=== PATIENT | male | born 1990 | race Caucasian/White ===

== ENCOUNTER → 2017-09-21 | Outpatient (CLI) | payer MEDICAID | LOC: M OUTALCOH 10:03 | DX: Z03.89 Encounter for observation for other suspected diseases and conditions ruled out (principal) ==

== ENCOUNTER 2017-09-28 15:04 | Outpatient (RCR) | payer OTHER | END 2017-10-08 | LOC: M OUTALCOH 10-05 13:00 | DX: F11.10 Opioid abuse, uncomplicated (principal); F19.10 Other psychoactive substance abuse, uncomplicated; F17.200 Nicotine dependence, unspecified, uncomplicated ==

== ENCOUNTER 2017-10-11 16:00 | Outpatient (RCR) | payer OTHER | END 2017-11-08 | LOC: M OUTALCOH 10-12 16:00 | DX: F11.10 Opioid abuse, uncomplicated (principal); F19.10 Other psychoactive substance abuse, uncomplicated; F17.200 Nicotine dependence, unspecified, uncomplicated ==

== ENCOUNTER 2017-10-19 16:58 | Emergency (ER) | payer OTHER ==
[2017-10-19] MEDS: METHOCARBAMOL 750 MG TAB PO (17:57)
[2017-10-19] MEDS: NAPROXEN 250 MG TAB PO (17:57)
== END 2017-10-19 18:07 | disposition home or self-care (01) ==
LOC: M ED 16:58
DX: S16.1XXA Strain of muscle, fascia and tendon at neck level, initial encounter (principal); S39.012A Strain of muscle, fascia and tendon of lower back, initial encounter; X58.XXXA Exposure to other specified factors, initial encounter; Y92.9 Unspecified place or not applicable; Y93.89 Activity, other specified; Y99.9 Unspecified external cause status; Z72.0 Tobacco use; Z79.899 Other long term (current) drug therapy
CPT/HCPCS: 99282

== ENCOUNTER 2017-10-25 09:30 | Emergency (ER) | payer OTHER ==
[2017-10-25] MEDS: ONDANSETRON 4 MG ORAL DISINTEGRATING TAB (Q0162 PER 1MG) PO (10:49)
[2017-10-25 11:02] LABS: AMORPHOUS SEDIMENT LARGE (NEGATIVE); APPEARANCE, URINE TURBID (CLEAR); BACTERIA, URINE AUTO NEGATIVE (NEGATIVE); BILIRUBIN, URINE AUTO 1+ (NEGATIVE); BLOOD, URINE BLOOD NEGATIVE (NEGATIVE); COLOR, URINE YELLOW (YELLOW); GLUCOSE, URINE (UA) AUTO NEGATIVE (NEGATIVE); KETONE, URINE AUTO NEGATIVE (NEGATIVE); LEUKOCYTE ESTERASE, URINE AUTO NEGATIVE (NEGATIVE); MUCUS, URINE SMALL (NEGATIVE); NITRITE, URINE AUTO NEGATIVE (NEGATIVE); PROTEIN, URINE AUTO NEGATIVE (NEGATIVE); RBC, URINE AUTO 0 /HPF (0-3); SPECIFIC GRAVITY URINE AUTO 1.019 (1.002-1.035); SQUAMOUS EPITHELIAL CELL UR AU 0 /HPF (0-6); UROBILINOGEN, URINE AUTO 0.2 mg/dL (0.0-2.0); WBC, URINE AUTO 0 /HPF (0-3)
== END 2017-10-25 11:50 | disposition home or self-care (01) ==
LOC: M ED 09:30
DX: A08.4 Viral intestinal infection, unspecified (principal); Z20.828 Contact with and (suspected) exposure to other viral communicable diseases; M54.5 Low back pain; F17.200 Nicotine dependence, unspecified, uncomplicated; Z79.899 Other long term (current) drug therapy; Z79.1 Long term (current) use of non-steroidal anti-inflammatories (NSAID)
CPT/HCPCS: Q0162

== ENCOUNTER 2017-11-03 11:45 | Emergency (ER) | payer OTHER | END 2017-11-03 12:00 | disposition left against medical advice (07) | LOC: M ED 11:45 | DX: S69.90XA Unspecified injury of unspecified wrist, hand and finger(s), initial encounter (principal); Z53.21 Procedure and treatment not carried out due to patient leaving prior to being seen by health care provider ==

== ENCOUNTER 2017-12-31 18:20 | Emergency (ER) | payer OTHER ==
[2017-12-31 19:12] LABS: KETONE, URINE AUTO RFX NEGATIVE (NEGATIVE); LEUKOCYTE ESTERASE UR AUTO RFX NEGATIVE (NEGATIVE); MUCUS, URINE RFX SMALL (NEGATIVE); NITRITE, URINE AUTO RFX NEGATIVE (NEGATIVE); RBC, URINE AUTO RFX 2 /HPF (0-3); SPECIFIC GRAVITY UR AUTO RFX 1.012 (1.002-1.035); SQUAM EPITHELIAL CELL UR AURFX 0 /HPF (0-6); WBC, URINE AUTO RFX 0 /HPF (0-3)
[2017-12-31 20:11] LABS: BASO # 0.1 10^3/uL (0.0-0.2); BASO % 1.1 % (0.0-1.0); EOS # 0.2 10^3/uL (0.0-0.50); EOS % 3.1 % (0.0-3.0); HEMOGLOBIN 14.8 g/dl (13.5-17.5); IMMATURE GRANULOCYTE % 0.3 % (0-3.0); LYMPH # 2.4 10^3/uL (1.5-6.5); LYMPH % 33.8 % (24.0-44.0); MEAN CORPUSCULAR HEMOGLOBIN 31.4 pg (27.0-33.0); MEAN CORPUSCULAR HGB CONC 33.6 g/dl (32.0-36.5); MEAN CORPUSCULAR VOLUME 93.4 fl (80.0-96.0); NEUTROPHILS # 3.4 10^3/uL (1.8-7.7); NEUTROPHILS % 47.7 % (36.0-66.0); PLATELET COUNT, AUTOMATED 193 10^3/uL (150-450); RED BLOOD COUNT 4.71 10^6/uL (4.30-6.10); RED CELL DISTRIBUTION WIDTH 11.9 % (11.5-14.5); WHITE BLOOD COUNT 7.1 10^3/uL (4.0-10.0)
[2017-12-31 20:39] LABS: ANION GAP 7 MEQ/L (8-16); BLOOD UREA NITROGEN 9 MG/DL (7-18); CALCIUM LEVEL 8.8 MG/DL (8.5-10.1); CARBON DIOXIDE LEVEL 28 MEQ/L (21-32); CHLORIDE LEVEL 105 MEQ/L (98-107); CREATININE FOR GFR 0.78 MG/DL (0.70-1.30); GLOMERULAR FILTRATION RATE > 60.0 (>60); GLUCOSE, FASTING 78 MG/DL (70-100); POTASSIUM SERUM 4.1 MEQ/L (3.5-5.1); SODIUM LEVEL 140 MEQ/L (136-145)
[2017-12-31 20:56] LABS: CHLAMYDIA DNA AMPLIFICATION NEGATIVE (NEGATIVE); GC DNA AMPLIFICATION NEGATIVE (NEGATIVE)
== END 2017-12-31 21:14 | disposition home or self-care (01) ==
LOC: M ED 21:14
DX: R35.0 Frequency of micturition (principal); J45.909 Unspecified asthma, uncomplicated; Z79.891 Long term (current) use of opiate analgesic; F17.210 Nicotine dependence, cigarettes, uncomplicated
CPT/HCPCS: 80048

== ENCOUNTER 2018-04-03 17:21 | Emergency (ER) | payer OTHER ==
[~2018-04-03] VITALS: Ht 175.3 cm; Wt 65.0 kg
[~2018-04-03 17:21] MED LIST: LOTR1CRE12 TOP; NAPR-49 PO; PROA1AER2; ROBA500T PO; SUBO8MIS; TRIA1OI TOP; ZOFR4TAB14 PO
[2018-04-03] MEDS ORDERED: HALO0.052 (17:27)
[2018-04-03] MEDS ORDERED: ANUSOL HC CREAM 30GM TOP STA (17:58)
[2018-04-03] MEDS ORDERED: HYDR25OIN TOP (18:03)
[2018-04-03 18:42] VITALS: BP 124/81
[2018-04-04] MEDS ORDERED: HYDROCORTISONE 2.5% 20GM OINTMENT TOP SCH (09:00)
== END 2018-04-03 18:53 | disposition home or self-care (01) ==
LOC: M ED 17:21
DX: R21 Rash and other nonspecific skin eruption (principal); J45.909 Unspecified asthma, uncomplicated

== ENCOUNTER → 2018-08-17 | Outpatient (REF) | payer OTHER ==
[~2018-08-17] MED LIST changes: +HALO0.052; +HYDR25OIN TOP; -NAPR-49 PO; +NAPR-837 PO
[2018-08-17 18:18] LABS: BASO # 0.1 10^3/uL (0.0-0.2); BASO % 0.9 % (0.0-1.0); EOS # 0.2 10^3/uL (0.0-0.50); EOS % 3.7 % (0.0-3.0); HEMATOCRIT 42.9 % (42.0-52.0); HEMOGLOBIN 14.1 g/dl (13.5-17.5); LYMPH % 34.6 % (24.0-44.0); MEAN CORPUSCULAR HEMOGLOBIN 30.7 pg (27.0-33.0); MEAN CORPUSCULAR HGB CONC 32.9 g/dl (32.0-36.5); MEAN CORPUSCULAR VOLUME 93.5 fl (80.0-96.0); MONO # 0.7 10^3/uL (0.0-0.8); MONO % 12.1 % (0.0-5.0); NEUTROPHILS # 2.9 10^3/uL (1.8-7.7); NEUTROPHILS % 48.5 % (36.0-66.0); PLATELET COUNT, AUTOMATED 212 10^3/uL (150-450); RED BLOOD COUNT 4.59 10^6/uL (4.30-6.10); WHITE BLOOD COUNT 5.9 10^3/uL (4.0-10.0)
[2018-08-17 18:58] LABS: ALBUMIN 4.1 GM/DL (3.2-5.2); ALT/SGPT 36 U/L (12-78); BILIRUBIN,TOTAL 0.5 MG/DL (0.2-1.0); BLOOD UREA NITROGEN 18 MG/DL (7-18); CALCIUM LEVEL 8.7 MG/DL (8.5-10.1); CARBON DIOXIDE LEVEL 30 MEQ/L (21-32); CHLORIDE LEVEL 105 MEQ/L (98-107); CREATININE FOR GFR 0.77 MG/DL (0.70-1.30); GLOMERULAR FILTRATION RATE > 60.0 (>60); GLUCOSE, FASTING 88 MG/DL (70-100); POTASSIUM SERUM 3.9 MEQ/L (3.5-5.1); SODIUM LEVEL 139 MEQ/L (136-145); TOTAL PROTEIN 7.2 GM/DL (6.4-8.2)
== END ==
LOC: M LAB REF 17:22
PROVIDERS: ATTEND Nurse Practitioner Adult Health
DX: Z13.9 Encounter for screening, unspecified (principal)

== ENCOUNTER 2018-10-14 15:11 | Emergency (ER) | payer OTHER ==
[~2018-10-14] VITALS: Ht 177.8 cm; Wt 63.6 kg
[2018-10-14] MEDS ORDERED: DOXYCYCLINE HYCLATE 100 MG TAB PO ONE (16:30)
[2018-10-14 16:57] LABS: BASO # 0.1 10^3/uL (0.0-0.2); BASO % 1.2 % (0.0-1.0); EOS # 0.2 10^3/uL (0.0-0.50); EOS % 2.5 % (0.0-3.0); HEMATOCRIT 46.3 % (42.0-52.0); HEMOGLOBIN 15.3 g/dl (13.5-17.5); LYMPH # 2.5 10^3/uL (1.5-6.5); LYMPH % 36.8 % (24.0-44.0); MEAN CORPUSCULAR HEMOGLOBIN 30.8 pg (27.0-33.0); MEAN CORPUSCULAR VOLUME 93.3 fl (80.0-96.0); MONO # 0.7 10^3/uL (0.0-0.8); MONO % 10.5 % (0.0-5.0); NEUTROPHILS # 3.3 10^3/uL (1.8-7.7); PLATELET COUNT, AUTOMATED 196 10^3/uL (150-450); RED BLOOD COUNT 4.96 10^6/uL (4.30-6.10); WHITE BLOOD COUNT 6.7 10^3/uL (4.0-10.0)
[2018-10-14 17:07] LABS: CHLAMYDIA DNA AMPLIFICATION NEGATIVE (NEGATIVE); GC DNA AMPLIFICATION NEGATIVE (NEGATIVE)
[2018-10-14] MEDS ORDERED: FLOM0.4C39 PO (18:05)
[2018-10-14 18:10] VITALS: BP 119/69
== END 2018-10-14 18:14 | disposition home or self-care (01) ==
LOC: M ED 16:02
DX: R30.0 Dysuria (principal); J45.909 Unspecified asthma, uncomplicated; B00.9 Herpesviral infection, unspecified; Z79.891 Long term (current) use of opiate analgesic; F17.210 Nicotine dependence, cigarettes, uncomplicated

== ENCOUNTER → 2019-04-07 | Outpatient (CLI) | payer OTHER ==
[~2019-04-07] MED LIST changes: +FLOM0.4C39 PO
--- NOTE | 2019-04-08 17:58 | REPVR ---
PROCEDURE INFORMATION: Exam: MR Cervical Spine Without Contrast Exam date and time: 04/07/2019 12:58 PM Age: 28 years old Clinical indication: Condition or disease; Scoliosis; Cervical region; Additional info: Oth idiopathic scoliosis cervical region TECHNIQUE: Imaging protocol: Multiplanar magnetic resonance images of the cervical spine without contrast. COMPARISON: CR SPINE CERVICAL COMPL 10/30/2018 9:08 AM FINDINGS: Vertebrae: Unremarkable. Spinal cord: Normal signal. No cord compression. C2-C3: Unremarkable. No disc protrusion, cord impingement or spinal stenosis. C3-C4: Mild bilateral uncovertebral joint hypertrophy. No disc protrusion, cord impingement or spinal stenosis. Mild bilateral neural foraminal narrowing. C4-C5: Unremarkable. No disc protrusion, cord impingement or spinal stenosis. C5-C6: Unremarkable. No disc protrusion, cord impingement or spinal stenosis. C6-C7: No disc protrusion, cord impingement or spinal stenosis. Left sided foraminal/extraforaminal fluid signal lesion measuring 4 mm, consistent with nerve root sheath cyst. C7-T1: No disc protrusion, cord impingement or spinal stenosis. Left sided foraminal/extraforaminal fluid signal lesion measuring 5 mm, consistent with nerve root sheath cyst. Vertebral arteries: Expected flow voids in the vertebral arteries. Soft tissues: Unremarkable. IMPRESSION: 1. Mild degenerative spondylosis at C3-C4. 2. 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 Electronically signed by: Bladimir Kurtz On 04/08/2019 17:57:40 PM
== END ==
LOC: M RAD 11:57
PROVIDERS: ATTEND Physician Assistant
DX: M47.812 Spondylosis without myelopathy or radiculopathy, cervical region (principal); M41.22 Other idiopathic scoliosis, cervical region; M48.02 Spinal stenosis, cervical region

== ENCOUNTER → 2019-06-20 | Outpatient (CLI) | payer OTHER ==
[2019-06-20 20:27] LABS: PLATELET COUNT, AUTOMATED 205 10^3/uL (150-450)
[2019-06-20 20:59] LABS: PARTIAL THROMBOPLASTIN TIME 32.7 SECONDS (25.0-38.4); PROTHROMBIN TIME 13.2 SECONDS (11.8-14.0)
[2019-06-20 21:00] LABS: INR 1.3
== END ==
LOC: M WUC 16:34
PROVIDERS: ATTEND Physician Assistant
DX: M47.892 Other spondylosis, cervical region (principal); Z01.812 Encounter for preprocedural laboratory examination

== ENCOUNTER → 2021-11-24 | Outpatient (REF) | payer OTHER ==
[2021-11-24 18:25] LABS: BASO # 0.1 10^3/uL (0.0-0.2); BASO % 1.4 % (0.0-1.0); EOS # 0.2 10^3/uL (0.0-0.5); HEMOGLOBIN 14.4 g/dl (13.5-17.5); LYMPH # 2.1 10^3/uL (1.5-5.0); LYMPH % 35.8 % (24.0-44.0); MEAN CORPUSCULAR VOLUME 96.8 fl (80.0-96.0); MONO # 0.5 10^3/uL (0.0-0.8); NEUTROPHILS # 2.9 10^3/uL (1.5-8.5); NEUTROPHILS % 50.6 % (36.0-66.0); PLATELET COUNT, AUTOMATED 251 10^3/uL (150-450); RED BLOOD COUNT 4.65 10^6/uL (4.30-6.10); WHITE BLOOD COUNT 5.8 10^3/uL (4.0-10.0)
[2021-11-24 18:28] LABS: HEMOGLOBIN A1c 5.3 %
[2021-11-24 18:59] LABS: ALBUMIN 3.9 GM/DL (3.2-5.2); ALT/SGPT 22 U/L (12-78); BILIRUBIN,TOTAL 0.5 MG/DL (0.2-1.0); BLOOD UREA NITROGEN 13 MG/DL (7-18); CALCIUM LEVEL 9.4 MG/DL (8.5-10.1); CARBON DIOXIDE LEVEL 33 MEQ/L (21-32); CHLORIDE LEVEL 104 MEQ/L (98-107); CREATININE FOR GFR 0.79 MG/DL (0.70-1.30); GLOMERULAR FILTRATION RATE > 60.0 (>60); GLUCOSE, FASTING 87 MG/DL (70-100); POTASSIUM SERUM 4.7 MEQ/L (3.5-5.1); SODIUM LEVEL 138 MEQ/L (136-145); TOTAL PROTEIN 7.9 GM/DL (6.4-8.2)
[2021-11-24 21:15] LABS: HIV 1&2 SCREEN CENTAUR NEGATIVE (NEGATIVE)
== END ==
LOC: M LAB REF 17:15
PROVIDERS: ATTEND Family Medicine Addiction Medicine
DX: R63.4 Abnormal weight loss (principal)

== ENCOUNTER → 2022-01-15 | Outpatient (CLI) | payer OTHER | LOC: M WUC 09:06 | PROVIDERS: ATTEND Family Medicine Addiction Medicine | DX: R06.09 Other forms of dyspnea (principal); Z86.19 Personal history of other infectious and parasitic diseases ==

== ENCOUNTER 2022-04-19 16:14 | Emergency (ER) | payer OTHER ==
[~2022-04-19] VITALS: Ht 177.8 cm; Wt 54.9 kg
[2022-04-19] MEDS ORDERED: GABA800T4 (16:26)
[2022-04-19 22:53] LABS: BASO # 0.1 10^3/uL (0.0-0.2); BASO % 1.4 % (0.0-1.0); EOS # 0.1 10^3/uL (0.0-0.5); EOS % 1.8 % (0.0-3.0); HEMATOCRIT 43.8 % (42.0-52.0); HEMOGLOBIN 14.8 g/dl (13.5-17.5); LYMPH # 2.4 10^3/uL (1.5-5.0); LYMPH % 32.9 % (24.0-44.0); MEAN CORPUSCULAR HEMOGLOBIN 31.4 pg (27.0-33.0); MEAN CORPUSCULAR HGB CONC 33.8 g/dl (32.0-36.5); MEAN CORPUSCULAR VOLUME 92.8 fl (80.0-96.0); MONO # 0.9 10^3/uL (0.0-0.8); MONO % 11.9 % (2.0-8.0); NEUTROPHILS # 3.7 10^3/uL (1.5-8.5); NEUTROPHILS % 51.7 % (36.0-66.0); PLATELET COUNT, AUTOMATED 181 10^3/uL (150-450); RED BLOOD COUNT 4.72 10^6/uL (4.30-6.10); WHITE BLOOD COUNT 7.2 10^3/uL (4.0-10.0)
[2022-04-19 23:17] LABS: ALBUMIN 4.7 G/DL (3.2-5.2); ALKALINE PHOSPHATASE 63 U/L (46-116); ALT/SGPT 74 U/L (7.0-40); AST/SGOT 31 U/L (<34); BILIRUBIN,TOTAL 1.3 MG/DL (0.3-1.2); BLOOD UREA NITROGEN 15 MG/DL (9-23); CALCIUM LEVEL 9.5 MG/DL (8.5-10.1); CARBON DIOXIDE LEVEL 28 MMOL/L (20-31); CHLORIDE LEVEL 102 MMOL/L (98-107); CREATININE FOR GFR 0.75 MG/DL (0.70-1.30); GLOMERULAR FILTRATION RATE > 60.0 (>60); GLUCOSE, FASTING 85 MG/DL (60-100); POTASSIUM SERUM 4.1 MMOL/L (3.5-5.1); SODIUM LEVEL 138 MMOL/L (136-145); TOTAL PROTEIN 7.7 G/DL (5.7-8.2)
[2022-04-20] MEDS ORDERED: HYDR-3363 PO (02:58)
[2022-04-20 02:59] VITALS: BP 123/84
== END 2022-04-20 03:23 | disposition home or self-care (01) ==
LOC: M ED 16:14
DX: F41.9 Anxiety disorder, unspecified (principal); F43.0 Acute stress reaction; I45.10 Unspecified right bundle-branch block; F12.10 Cannabis abuse, uncomplicated; J45.909 Unspecified asthma, uncomplicated; Z79.51 Long term (current) use of inhaled steroids; Z79.891 Long term (current) use of opiate analgesic; Z79.899 Other long term (current) drug therapy

== ENCOUNTER → 2022-05-13 | Outpatient (REF) | payer OTHER ==
[~2022-05-13] MED LIST changes: +GABA800T4; +HYDR-3363 PO
[2022-05-13 17:15] LABS: BASO # 0.1 10^3/uL (0.0-0.2); BASO % 2.2 % (0.0-1.0); EOS # 0.2 10^3/uL (0.0-0.5); HEMATOCRIT 44.5 % (42.0-52.0); HEMOGLOBIN 14.5 g/dl (13.5-17.5); LYMPH # 1.9 10^3/uL (1.5-5.0); LYMPH % 37.3 % (24.0-44.0); MEAN CORPUSCULAR HEMOGLOBIN 30.5 pg (27.0-33.0); MEAN CORPUSCULAR HGB CONC 32.6 g/dl (32.0-36.5); MEAN CORPUSCULAR VOLUME 93.7 fl (80.0-96.0); MONO # 0.5 10^3/uL (0.0-0.8); MONO % 9.9 % (2.0-8.0); NEUTROPHILS # 2.4 10^3/uL (1.5-8.5); NEUTROPHILS % 47.4 % (36.0-66.0); PLATELET COUNT, AUTOMATED 212 10^3/uL (150-450); RED BLOOD COUNT 4.75 10^6/uL (4.30-6.10)
[2022-05-13 17:41] LABS: ALBUMIN 4.4 G/DL (3.2-5.2); ALKALINE PHOSPHATASE 61 U/L (46-116); ALT/SGPT 38 U/L (7.0-40); AST/SGOT 28 U/L (<34); BILIRUBIN,TOTAL 0.7 MG/DL (0.3-1.2); BLOOD UREA NITROGEN 14 MG/DL (9-23); CALCIUM LEVEL 8.8 MG/DL (8.5-10.1); CARBON DIOXIDE LEVEL 31 MMOL/L (20-31); CHLORIDE LEVEL 103 MMOL/L (98-107); CREATININE FOR GFR 0.73 MG/DL (0.70-1.30); GLOMERULAR FILTRATION RATE > 60.0 (>60); GLUCOSE, FASTING 89 MG/DL (60-100); POTASSIUM SERUM 4.5 MMOL/L (3.5-5.1); SODIUM LEVEL 138 MMOL/L (136-145); TOTAL PROTEIN 7.5 G/DL (5.7-8.2)
== END ==
LOC: M LAB REF 16:44
PROVIDERS: ATTEND Family Medicine Addiction Medicine
DX: Z86.19 Personal history of other infectious and parasitic diseases (principal)

== ENCOUNTER → 2022-06-01 | Outpatient (CLI) | payer OTHER | LOC: M RAD 13:31 | PROVIDERS: ATTEND Internal Medicine Pulmonary Disease | DX: R06.02 Shortness of breath (principal) ==

== ENCOUNTER → 2023-09-01 | Outpatient (CLI) | payer MEDICAID | LOC: M OUTALCOH 07:59 | PROVIDERS: ATTEND Psychiatry & Neurology Psychiatry | DX: F11.20 Opioid dependence, uncomplicated (principal) ==

== ENCOUNTER 2023-09-07 15:54 | Outpatient (RCR) | payer MEDICAID | END 2023-09-09 | LOC: M OUTALCOH 15:54 | PROVIDERS: ATTEND Psychiatry & Neurology Psychiatry | DX: F11.20 Opioid dependence, uncomplicated (principal) ==

== ENCOUNTER → 2024-03-01 | Outpatient (REF) | payer MEDICAID ==
[~2024-03-01] MED LIST changes: +GABA-1635; -GABA800T4; -HALO0.052; +HALO0.056
[2024-03-01 19:24] LABS: HEMATOCRIT 45.6 % (42.0-52.0); MEAN CORPUSCULAR HEMOGLOBIN 31.4 pg (27.0-33.0); MEAN CORPUSCULAR HGB CONC 32.9 g/dl (32.0-36.5); MEAN CORPUSCULAR VOLUME 95.6 fl (80.0-96.0); PLATELET COUNT, AUTOMATED 151 10^3/uL (150-450); RED BLOOD COUNT 4.77 10^6/uL (4.30-6.10); WHITE BLOOD COUNT 4.8 10^3/uL (4.0-10.0)
[2024-03-01 19:58] LABS: ALBUMIN 3.8 G/DL (3.2-5.2); ALKALINE PHOSPHATASE 80 U/L (40-129); ALT/SGPT 37 U/L (7.0-40); AST/SGOT 50 U/L (<34); BILIRUBIN,TOTAL 0.4 MG/DL (0.3-1.2); BLOOD UREA NITROGEN 16 MG/DL (9-23); CALCIUM LEVEL 9.4 MG/DL (8.5-10.1); CARBON DIOXIDE LEVEL 29 MMOL/L (20-31); CHLORIDE LEVEL 106 MMOL/L (98-107); CREATININE FOR GFR 0.62 MG/DL (0.70-1.30); GLOMERULAR FILTRATION RATE > 60.0 (>60); GLUCOSE, FASTING 93 MG/DL (60-100); POTASSIUM SERUM 4.7 MMOL/L (3.5-5.1); SODIUM LEVEL 141 MMOL/L (136-145); TOTAL PROTEIN 6.9 G/DL (5.7-8.2); VITAMIN B12 LEVEL 390 PG/ML (211-911)
== END ==
LOC: M LAB REF 16:36
PROVIDERS: ATTEND Family Medicine Addiction Medicine
DX: M79.671 Pain in right foot (principal); M79.672 Pain in left foot

== ENCOUNTER 2024-08-12 20:51 | Emergency (ER) | payer MEDICAID, OTHER ==
[~2024-08-12] VITALS: Ht 177.8 cm; Wt 59.1 kg
[~2024-08-12 20:51] MED LIST changes: -FLOM0.4C39 PO; +TAMS-18 PO
[2024-08-12] MEDS ORDERED: CLON1TAB8 (21:00)
[2024-08-12] MEDS ORDERED: ALBU2.5V10 (21:00)
[2024-08-13] MEDS: KETOROLAC 30 MG/ML 1ML VIAL IV ONE (00:48)
[2024-08-13 00:58] LABS: BASO # 0.1 10^3/uL (0.0-0.2); BASO % 0.3 % (0.0-1.0); EOS % 0.1 % (0.0-3.0); HEMATOCRIT 45.2 % (42.0-52.0); HEMOGLOBIN 14.6 g/dl (13.5-17.5); LYMPH # 0.6 10^3/uL (1.5-5.0); LYMPH % 4.1 % (24.0-44.0); MEAN CORPUSCULAR HGB CONC 32.3 g/dl (32.0-36.5); MONO % 6.6 % (2.0-8.0); NEUTROPHILS # 12.9 10^3/uL (1.5-8.5); NEUTROPHILS % 88.6 % (36.0-66.0); PLATELET COUNT, AUTOMATED 237 10^3/uL (150-450); RED BLOOD COUNT 4.71 10^6/uL (4.30-6.10); WHITE BLOOD COUNT 14.5 10^3/uL (4.0-10.0)
[2024-08-13] MEDS: NS (Normal Saline) 0.9% 1,000 ML IV ONE (01:15)
[2024-08-13 01:23] LABS: BLOOD UREA NITROGEN 9 MG/DL (9-23); CALCIUM LEVEL 8.8 MG/DL (8.5-10.1); CARBON DIOXIDE LEVEL 29 MMOL/L (20-31); CHLORIDE LEVEL 104 MMOL/L (98-107); CK-MB VALUE MASS < 1.0 NG/ML (<3.6); CREATININE FOR GFR 0.63 MG/DL (0.70-1.30); GLOMERULAR FILTRATION RATE > 90.0 (>60); GLUCOSE, FASTING 124 MG/DL (60-100); POTASSIUM SERUM 4.5 MMOL/L (3.5-5.1); SODIUM LEVEL 141 MMOL/L (136-145)
[2024-08-13 01:27] LABS: CPK CREATINE PHOSPHOKINASE 82 U/L (46-171); MB/CK RELATIVE INDEX 1.21 (< OR =4)
[2024-08-13] MEDS ORDERED: ISOVUE-370 76% 100ML VIAL As Ordered ONE (01:30)
[2024-08-13 03:09] LABS: APPEARANCE, URINE CLEAR (CLEAR); BACTERIA, URINE AUTO NEGATIVE (NEGATIVE); BILIRUBIN, URINE AUTO NEGATIVE (NEGATIVE); BLOOD, URINE BLOOD NEGATIVE (NEGATIVE); COLOR, URINE YELLOW (YELLOW); GLUCOSE, URINE (UA) AUTO NEGATIVE (NEGATIVE); KETONE, URINE AUTO NEGATIVE (NEGATIVE); LEUKOCYTE ESTERASE, URINE AUTO NEGATIVE (NEGATIVE); MUCUS, URINE SMALL (NEGATIVE); NITRITE, URINE AUTO NEGATIVE (NEGATIVE); PROTEIN, URINE AUTO 1+ mg/dL (NEGATIVE); RBC, URINE AUTO 1 /HPF (0-3); SPECIFIC GRAVITY URINE AUTO 1.027 (1.002-1.035); SQUAMOUS EPITHELIAL CELL UR AU 0 /HPF (0-6); WBC, URINE AUTO 2 /HPF (0-3)
[2024-08-13] MEDS: LIDOCAINE VISCOUS 2% SOLN 15ML UDC PO ONE (03:09)
[2024-08-13] MEDS: MAALOX 30 ML SUSP *UDC PO ONE (03:09)
[2024-08-13 03:31] LABS: PROCALCITONIN 0.14 ng/ml
[2024-08-13 03:46] VITALS: TEMP 99
[2024-08-13] MEDS ORDERED: AMOX500T PO (04:14)
[2024-08-13] MEDS ORDERED: AZIT-12 PO (04:14)
[2024-08-13] MEDS: cefTRIAXone SOD 2 GM in DEXTROSE 5% (D5W) ADV/MINI-BAG 50 ML IV ONE (04:25)
[2024-08-13 04:30] VITALS: BP 94/56; O2SAT 98
== END 2024-08-13 05:27 | disposition home or self-care (01) ==
LOC: M ED 20:51 → EDBD 20:51 → M ED 08-13 05:27
DX: J18.9 Pneumonia, unspecified organism (principal); R07.9 Chest pain, unspecified; J45.909 Unspecified asthma, uncomplicated; F32.A Depression, unspecified; F41.0 Panic disorder [episodic paroxysmal anxiety]; F17.200 Nicotine dependence, unspecified, uncomplicated; F12.10 Cannabis abuse, uncomplicated; Z79.52 Long term (current) use of systemic steroids; Z79.2 Long term (current) use of antibiotics; Z79.899 Other long term (current) drug therapy
CPT/HCPCS: 71045; 71275; 80048; 81001; 82550; 82553; 83605; 84145; 84484; 85025; 87040; 87486; 87581; 87633; 87798; 96361; 96365; 96375; 99284; J0696; J1885; Q9967

== ENCOUNTER 2024-10-05 18:05 | Inpatient (IN) | payer MEDICAID, OTHER ==
[~2024-10-05] VITALS: Ht 177.8 cm; Wt 56.8 kg
[~2024-10-05 18:05] MED LIST changes: +ALBU2.5V10; +AMOX500T PO; +AZIT-12 PO; +CLON1TAB8 PO; -PROA1AER2; +PROA1AER2 INH
[2024-10-05] MEDS ORDERED: ONDANSETRON 4MG 2ML VIAL IV ONE (18:15)
[2024-10-05] MEDS ORDERED: ISOVUE-370 76% 100 ML VIAL As Ordered ONE (18:23)
[2024-10-05] MEDS: MORPHINE 4 MG/ML 1 ML VIAL IV ONE ×2 (18:23→19:41)
[2024-10-05] MEDS: NS (Normal Saline) 0.9% 1,000 ML IV ONE ×2 (18:24→19:03)
[2024-10-05] MEDS: ONDANSETRON 4MG 2ML VIAL IV ONE (18:24)
[2024-10-05 18:39] LABS: VENOUS BASE EXCESS -0.4 (-2.0-2.0); VENOUS HCO3 26.7 MMOL/L (23.0-27.0); VENOUS O2 SATURATION 48.9 % (60.0-80.0); VENOUS PARTIAL PRESSURE CO2 53.2 mmHg (38.0-50.0); VENOUS PARTIAL PRESSURE O2 24.0 mmHg (30.0-50.0); VENOUS PH 7.318 UNITS (7.330-7.430); VENOUS STANDARD HCO3 22.9 MMOL/L; VENOUS TOTAL CO2 28.3 MMOL/L (24.0-28.0)
[2024-10-05 18:41] LABS: BASO # 0.1 10^3/uL (0.0-0.2); BASO % 1.1 % (0.0-1.0); EOS # 0.1 10^3/uL (0.0-0.5); EOS % 1.2 % (0.0-3.0); LYMPH # 2.3 10^3/uL (1.5-5.0); LYMPH % 28.2 % (24.0-44.0); MONO # 0.6 10^3/uL (0.0-0.8); MONO % 8.0 % (2.0-8.0); NEUTROPHILS # 4.9 10^3/uL (1.5-8.5); NEUTROPHILS % 61.3 % (36.0-66.0); PLATELET COUNT, AUTOMATED 178 10^3/uL (150-450)
[2024-10-05 18:55] LABS: INR 1.16
[2024-10-05 18:56] LABS: ALT/SGPT 21 U/L (7.0-40); AST/SGOT 25 U/L (<34); CALCIUM LEVEL 8.6 MG/DL (8.5-10.1); CARBON DIOXIDE LEVEL 30 MMOL/L (20-31); CHLORIDE LEVEL 102 MMOL/L (98-107); CREATININE FOR GFR 0.78 MG/DL (0.70-1.30); GLOMERULAR FILTRATION RATE > 90.0 (>60); POTASSIUM SERUM 3.7 MMOL/L (3.5-5.1); SODIUM LEVEL 140 MMOL/L (136-145)
[2024-10-05] MEDS ORDERED: MORPHINE 2 MG/ML 1 ML VIAL IV PRN (19:00)
[2024-10-05] MEDS ORDERED: ACETAMINOPHEN 325 MG TAB PO PRN (19:40)
[2024-10-05 19:45] LABS: PLATELET COUNT, AUTOMATED 148 10^3/uL (150-450)
[2024-10-05] MEDS ORDERED: BUPR1FIL3 SL (21:01)
[2024-10-05] MEDS ORDERED: NICO1DIS12 TD (21:04)
[2024-10-05] MEDS ORDERED: IBUP200T46 PO (21:04)
[2024-10-05] MEDS ORDERED: GABA-1635 PO (21:04)
[2024-10-05] MEDS ORDERED: BUPR150T12 PO (21:04)
[2024-10-05] MEDS ORDERED: ZOLO100T PO (21:04)
[2024-10-05] MEDS ORDERED: HOME MED LIST COMPLETE! XX SCH (21:05)
[2024-10-05] MEDS ORDERED: ALBUTEROL 90 MCG/ACT 8 GM HFA INHALER INH PRN (21:15)
[2024-10-05] MEDS ORDERED: IBUPROFEN 600 MG TAB PO PRN (21:15)
[2024-10-05] MEDS ORDERED: NALOXONE INJ 0.4MG/1ML VIAL IV PRN (21:15)
[2024-10-05] MEDS ORDERED: PILL CUTTER 1 EACH XX PRN (21:20)
[2024-10-05 21:39] LABS: APPEARANCE, URINE CLEAR (CLEAR); BACTERIA, URINE AUTO NEGATIVE (NEGATIVE); BILIRUBIN, URINE AUTO NEGATIVE (NEGATIVE); BLOOD, URINE BLOOD NEGATIVE (NEGATIVE); GLUCOSE, URINE (UA) AUTO NEGATIVE (NEGATIVE); KETONE, URINE AUTO 1+ mg/dL (NEGATIVE); LEUKOCYTE ESTERASE, URINE AUTO NEGATIVE (NEGATIVE); MUCUS, URINE SMALL (NEGATIVE); NITRITE, URINE AUTO NEGATIVE (NEGATIVE); PROTEIN, URINE AUTO NEGATIVE (NEGATIVE); RBC, URINE AUTO 0 /HPF (0-3); SPECIFIC GRAVITY URINE AUTO 1.057 (1.002-1.035); SQUAMOUS EPITHELIAL CELL UR AU 0 /HPF (0-6); UROBILINOGEN, URINE AUTO 4.0 mg/dL (0.0-2.0); WBC, URINE AUTO 1 /HPF (0-3)
[2024-10-05] MEDS: LR 1,000 ML IV SCH (22:01)
[2024-10-05] MEDS: SENNOSIDES/DOCUSATE SODIUM 8.6 MG/50MG TAB PO SCH (22:01)
[2024-10-05] MEDS: GABAPENTIN 400 MG CAP PO SCH (22:01)
[2024-10-05] MEDS: NICOTINE 21MG/24HR 1 EA TRANSDERMAL TD PRN (22:02)
[2024-10-05] MEDS: HEPARIN SOD 5000 UNITS/ML 1 ML VIAL/SYRINGE SQ SCH (22:03)
[2024-10-05 23:18] VITALS: BP 107/74; TEMP 99.6; O2SAT 100
[2024-10-06] VITALS (10 sets, daily range): BP systolic 97–120; BP diastolic 55–70; TEMP 97.1–98.8; O2SAT 96–100
[2024-10-06 07:26] LABS: PLATELET COUNT, AUTOMATED 143 10^3/uL (150-450)
[2024-10-06 07:51] LABS: CALCIUM LEVEL 7.9 MG/DL (8.5-10.1); CARBON DIOXIDE LEVEL 30 MMOL/L (20-31); CHLORIDE LEVEL 104 MMOL/L (98-107); CREATININE FOR GFR 0.75 MG/DL (0.70-1.30); GLOMERULAR FILTRATION RATE > 90.0 (>60); POTASSIUM SERUM 3.9 MMOL/L (3.5-5.1); SODIUM LEVEL 141 MMOL/L (136-145)
[2024-10-06] MEDS: TRANEXAMIC ACID 100 MG/ML 10ML VIAL As Ordered ONE (08:47)
[2024-10-06] MEDS ORDERED: LIDOCAINE 2% 100 MG/5 ML SDV (FOR ANES.) As Ordered ONE (08:50)
[2024-10-06] MEDS ORDERED: dexAMETHasone 4 MG/ML 1 ML VIAL As Ordered ONE (08:50)
[2024-10-06] MEDS ORDERED: ROCURONIUM BROMIDE 50MG/5ML VIAL As Ordered ONE (08:50)
[2024-10-06] MEDS ORDERED: MIDAZOLAM INJ 2 MG/2 ML VIAL As Ordered ONE (08:50)
[2024-10-06] MEDS ORDERED: ONDANSETRON 4MG 2ML VIAL As Ordered ONE (08:50)
[2024-10-06] MEDS ORDERED: SUGAMMADEX SODIUM 200 MG/2 ML VIAL As Ordered ONE (08:50)
[2024-10-06] MEDS ORDERED: dexmedeTOMIDine (4 MCG/ML) 200 MCG/50 ML BTL As Ordered ONE (08:50)
[2024-10-06] MEDS ORDERED: buPROPion **XL** 150 MG TABLET PO SCH (09:00)
[2024-10-06] MEDS ORDERED: SERTRALINE 100 MG TAB PO SCH (09:00)
[2024-10-06] MEDS ORDERED: BUPRENORPHINE/NALOXONE 8-2MG SUBLINGUAL TABLET(SUBOXONE) SL SCH (09:00)
[2024-10-06] MEDS ORDERED: HYDROmorphone HCL 2 MG/ML 1 ML VIAL As Ordered ONE (10:53)
[2024-10-06] MEDS: VANCOMYCIN 1000MG/20ML VIAL As Ordered ONE (11:35)
[2024-10-06] MEDS ORDERED: PROMETHAZINE 25MG/ML 1ML VIAL IV PRN (12:15)
[2024-10-06] MEDS ORDERED: ONDANSETRON 4MG 2ML VIAL IV PRN (12:15)
[2024-10-06] MEDS: LR 1,000 ML IV SCH (12:15)
[2024-10-06] MEDS: dexAMETHasone 10 MG/1 ML VIAL PRES.FREE PN ONE (12:15)
[2024-10-06] MEDS: ROPIvacaine 0.5% 30ML VIAL PN ONE (12:15)
[2024-10-06] MEDS ORDERED: MEPERIDINE 25 MG/ML 1 ML VIAL IV PRN (12:15)
[2024-10-06] MEDS ORDERED: diphenhydrAMINE 50 MG/ML VIAL IV PRN (12:15)
[2024-10-06] MEDS: EPINEPHrine INJ 1 MG/ML 1ML AMP PN ONE (12:15)
[2024-10-06] MEDS ORDERED: HYDROMORPHONE HCL 0.5 MG/0.5 ML SYRINGE IV PRN (12:15)
[2024-10-06] MEDS: ALBUTEROL SULFATE 2.5 MG/0.5 ML INH CONCENTRATE NEB SOLN INH ONE (12:15)
[2024-10-06] MEDS: LIDOCAINE 1% SDV 5 ML VIAL PN ONE (12:15)
[2024-10-06] MEDS: PANTOPRAZOLE 40MG TAB PO SCH (15:23)
[2024-10-06] MEDS: PERCOCET 5MG/325MG TAB PO PRN (15:27)
[2024-10-06] MEDS ORDERED: SALIVA SUBSTITUTE BTL MT PRN (17:25)
[2024-10-06] MEDS: ceFAZolin SODIUM 2 GM in DEXTROSE 5% (D5W) ADV/MINI-BAG 50 ML IV SCH (18:51)
[2024-10-06] MEDS: KETOROLAC TROMETHAMINE 10 MG TAB PO SCH (20:18)
[2024-10-06] MEDS: ACETAMINOPHEN 500 MG TAB PO SCH (21:51)
[2024-10-06] MEDS: MORPHINE 2 MG/ML 1 ML VIAL IV PRN (21:51)
[2024-10-07] VITALS (14 sets, daily range): BP systolic 88–104; BP diastolic 44–60; TEMP 97.6–98.9; O2SAT 93–99
[2024-10-07] MEDS: NS (Normal Saline) 0.9% 1,000 ML IV ONE (04:31)
[2024-10-07] MEDS: NS 500 ML IV ONE (05:51)
[2024-10-07 06:22] LABS: PLATELET COUNT, AUTOMATED 87 10^3/uL (150-450)
[2024-10-07 06:52] LABS: CALCIUM LEVEL 7.3 MG/DL (8.5-10.1); CARBON DIOXIDE LEVEL 29 MMOL/L (20-31); CHLORIDE LEVEL 107 MMOL/L (98-107); CREATININE FOR GFR 0.61 MG/DL (0.70-1.30); GLOMERULAR FILTRATION RATE > 90.0 (>60); POTASSIUM SERUM 4.0 MMOL/L (3.5-5.1); SODIUM LEVEL 142 MMOL/L (136-145)
[2024-10-07 15:34] LABS: PLATELET COUNT, AUTOMATED 100 10^3/uL (150-450)
[2024-10-07] MEDS: MORPHINE 2 MG/ML 1 ML VIAL IV PRN (17:27)
[2024-10-08] VITALS (20 sets, daily range): BP systolic 88–102; BP diastolic 50–57; TEMP 97–99; O2SAT 95–99
[2024-10-08] MEDS: NS (Normal Saline) 0.9% 1,000 ML IV ONE (01:39)
[2024-10-08 07:00] LABS: PLATELET COUNT, AUTOMATED 101 10^3/uL (150-450)
[2024-10-08 07:08] LABS: CALCIUM LEVEL 8.2 MG/DL (8.5-10.1); CARBON DIOXIDE LEVEL 29 MMOL/L (20-31); CHLORIDE LEVEL 106 MMOL/L (98-107); CREATININE FOR GFR 0.58 MG/DL (0.70-1.30); GLOMERULAR FILTRATION RATE > 90.0 (>60); POTASSIUM SERUM 3.5 MMOL/L (3.5-5.1); SODIUM LEVEL 143 MMOL/L (136-145)
[2024-10-08] MEDS: MORPHINE 2 MG/ML 1 ML VIAL IV ONE (09:21)
[2024-10-09] VITALS (18 sets, daily range): BP systolic 97–112; BP diastolic 53–60; TEMP 97.5–99.6; O2SAT 95–100
[2024-10-09 06:43] LABS: PLATELET COUNT, AUTOMATED 115 10^3/uL (150-450)
[2024-10-09 07:07] LABS: CALCIUM LEVEL 7.8 MG/DL (8.5-10.1); CARBON DIOXIDE LEVEL 30 MMOL/L (20-31); CHLORIDE LEVEL 105 MMOL/L (98-107); CREATININE FOR GFR 0.57 MG/DL (0.70-1.30); GLOMERULAR FILTRATION RATE > 90.0 (>60); POTASSIUM SERUM 3.5 MMOL/L (3.5-5.1); SODIUM LEVEL 144 MMOL/L (136-145)
[2024-10-09] MEDS: ONDANSETRON 4MG 2ML VIAL IV PRN (19:53)
[2024-10-10] VITALS (12 sets, daily range): BP systolic 103–115; BP diastolic 52–67; TEMP 97.8–99.9; O2SAT 96–100
[2024-10-10 07:14] LABS: PLATELET COUNT, AUTOMATED 157 10^3/uL (150-450)
[2024-10-10 07:44] LABS: CALCIUM LEVEL 7.8 MG/DL (8.5-10.1); CARBON DIOXIDE LEVEL 29 MMOL/L (20-31); CHLORIDE LEVEL 104 MMOL/L (98-107); CREATININE FOR GFR 0.54 MG/DL (0.70-1.30); GLOMERULAR FILTRATION RATE > 90.0 (>60); POTASSIUM SERUM 4.0 MMOL/L (3.5-5.1); SODIUM LEVEL 141 MMOL/L (136-145)
[2024-10-10] MEDS ORDERED: ACETAMINOPHEN 1000MG/100ML IV BAG As Ordered ONE (16:15)
[2024-10-10] MEDS ORDERED: SUGAMMADEX SODIUM 500 MG/5 ML VIAL As Ordered ONE (17:29)
[2024-10-10] MEDS ORDERED: KETOROLAC 30 MG/ML 1 ML VIAL As Ordered ONE (17:29)
[2024-10-10] MEDS: ONDANSETRON 4MG 2ML VIAL IV PRN (20:18)
[2024-10-10] MEDS: HYDROMORPHONE HCL 0.5 MG/0.5 ML SYRINGE IV PRN (20:50)
[2024-10-10] MEDS: clonazePAM 1 MG TAB PO PRN (22:33)
[2024-10-11] VITALS (8 sets, daily range): BP systolic 104–116; BP diastolic 56–72; TEMP 97.8–99.8; O2SAT 96–100
[2024-10-11] MEDS: ceFAZolin SODIUM 2 GM in DEXTROSE 5% (D5W) ADV/MINI-BAG 50 ML IV SCH (00:25)
[2024-10-11 08:14] LABS: PLATELET COUNT, AUTOMATED 199 10^3/uL (150-450)
[2024-10-11 08:40] LABS: CALCIUM LEVEL 8.1 MG/DL (8.5-10.1); CARBON DIOXIDE LEVEL 31 MMOL/L (20-31); CHLORIDE LEVEL 100 MMOL/L (98-107); CREATININE FOR GFR 0.54 MG/DL (0.70-1.30); GLOMERULAR FILTRATION RATE > 90.0 (>60); POTASSIUM SERUM 4.3 MMOL/L (3.5-5.1); SODIUM LEVEL 139 MMOL/L (136-145)
[2024-10-11] MEDS: MORPHINE 2 MG/ML 1 ML VIAL IV ONE (09:08)
[2024-10-11] MEDS ORDERED: MORPHINE 2 MG/ML 1 ML VIAL IV PRN (09:25)
[2024-10-11] MEDS: MORPHINE 2 MG/ML 1 ML VIAL IV PRN (13:52)
[2024-10-11] MEDS: RIVAROXABAN 10MG TAB PO SCH (18:24)
[2024-10-12] VITALS: BP 102/58; TEMP 98.4; O2SAT 100
[2024-10-12 04:00] VITALS: BP 120/68; TEMP 98.4; O2SAT 100
[2024-10-12] MEDS: METHOCARBAMOL 1,000 MG/10 ML VIAL IV ONE (05:15)
[2024-10-12] MEDS: ACETAMINOPHEN *IV* 1,000 MG in IV 1 EA IV ONE (05:28)
[2024-10-12 06:24] LABS: PLATELET COUNT, AUTOMATED 177 10^3/uL (150-450)
[2024-10-12 06:47] LABS: CALCIUM LEVEL 7.6 MG/DL (8.5-10.1); CARBON DIOXIDE LEVEL 30 MMOL/L (20-31); CHLORIDE LEVEL 103 MMOL/L (98-107); CREATININE FOR GFR 0.58 MG/DL (0.70-1.30); GLOMERULAR FILTRATION RATE > 90.0 (>60); POTASSIUM SERUM 3.6 MMOL/L (3.5-5.1); SODIUM LEVEL 142 MMOL/L (136-145)
[2024-10-12 08:01] VITALS: BP 119/63; TEMP 99.2; O2SAT 100
[2024-10-12] MEDS ORDERED: MORPHINE 4 MG/ML 1 ML VIAL IV PRN (08:15)
[2024-10-12] MEDS: MORPHINE 4 MG/ML 1 ML VIAL IV PRN (08:20)
[2024-10-12] MEDS ORDERED: HYDROMORPHONE HCL 0.5 MG/0.5 ML SYRINGE IV PRN (08:35)
[2024-10-12] MEDS: HYDROMORPHONE HCL 0.5 MG/0.5 ML SYRINGE IV PRN (10:40)
[2024-10-12] MEDS ORDERED: NARC1SPR NARES (11:18)
[2024-10-12] MEDS ORDERED: DILA2TAB6 PO (11:18)
[2024-10-12] MEDS ORDERED: PROT1TAB2 PO (11:25)
[2024-10-12] MEDS ORDERED: ASPI81CH33 PO (11:25)
== END 2024-10-12 12:08 | disposition home or self-care (01) | DRG 313 ==
LOC: M ED 18:05 → M ED INP 19:38 → M MS4PR 23:15
PROVIDERS: ADMIT Surgery; ATTEND Internal Medicine
PROC: 0JQP0ZZ Repair Left Lower Leg Subcutaneous Tissue and Fascia, Open Approach (ICD-10-PCS; 2024-10-06)
PROC: 0PSB04Z Reposition Left Clavicle with Internal Fixation Device, Open Approach (ICD-10-PCS; 2024-10-06)
PROC: 0SH Lower Joints, Insertion (ICD-10-PCS; principal; 2024-10-06 08:00)
PROC: 0QP Lower Bones, Removal (ICD-10-PCS; 2024-10-10)
PROC: 0QSH04Z Reposition Left Tibia with Internal Fixation Device, Open Approach (ICD-10-PCS; 2024-10-10)
DX: S82.452A Displaced comminuted fracture of shaft of left fibula, initial encounter for closed fracture (principal); F17.200 Nicotine dependence, unspecified, uncomplicated; T79.A22A Traumatic compartment syndrome of left lower extremity, initial encounter; F11.20 Opioid dependence, uncomplicated; J45.909 Unspecified asthma, uncomplicated; S82.252A Displaced comminuted fracture of shaft of left tibia, initial encounter for closed fracture; Z79.899 Other long term (current) drug therapy; S42.022A Displaced fracture of shaft of left clavicle, initial encounter for closed fracture; D62 Acute posthemorrhagic anemia; D72.829 Elevated white blood cell count, unspecified; G89.29 Other chronic pain; F39 Unspecified mood [affective] disorder; D69.6 Thrombocytopenia, unspecified; F12.90 Cannabis use, unspecified, uncomplicated

== ENCOUNTER → 2024-11-07 | Outpatient (CLI) | payer OTHER, MEDICAID ==
[~2024-11-07] MED LIST changes: +ASPI81CH33 PO; +BUPR150T12 PO; +BUPR1FIL3 SL; +DILA2TAB6 PO; +GABA-1635 PO; +IBUP200T46 PO; +NARC1SPR NARES; +NICO1DIS12 TD; +PROT1TAB2 PO; +ZOLO100T PO
== END ==
LOC: M SOG 07:07
PROVIDERS: ATTEND Physician Assistant
DX: S42.022D Displaced fracture of shaft of left clavicle, subsequent encounter for fracture with routine healing (principal); S82.832D Other fracture of upper and lower end of left fibula, subsequent encounter for closed fracture with routine healing; S82.202D Unspecified fracture of shaft of left tibia, subsequent encounter for closed fracture with routine healing

== ENCOUNTER → 2025-03-11 | Outpatient (CLI) | payer OTHER, MEDICAID | LOC: M SOG 07:51 | PROVIDERS: ATTEND Physician Assistant | DX: S82.832D Other fracture of upper and lower end of left fibula, subsequent encounter for closed fracture with routine healing (principal) ==

== ENCOUNTER → 2025-03-21 | Outpatient (CLI) | payer OTHER, MEDICAID | LOC: M SOG 07:42 | PROVIDERS: ATTEND Physician Assistant | DX: S82.832D Other fracture of upper and lower end of left fibula, subsequent encounter for closed fracture with routine healing (principal) ==